=== PATIENT | female | born 1975 | race Caucasian/White ===

== ENCOUNTER → 2016-10-12 | Outpatient (CLI) | payer OTHER ==
[~2016-10-12] MED LIST: AMPH30TA2 PO; FEXO1TAB58 PO; LEVO75TA PO; LIOT5TAB9 PO; METF-384 PO; NORGTAB3 PO
[2016-10-12 10:07] LABS: MAGNESIUM 2.2 mg/dl (1.8-2.4); THYROID STIMULATING HORMONE 0.743 uIu/ml (0.300-4.500)
== END | disposition home or self-care (01) ==
LOC: C.LAB 07:00
PROVIDERS: ATTEND Nurse Practitioner Family
DX: E03.9 Hypothyroidism, unspecified (principal); R03.0 Elevated blood-pressure reading, without diagnosis of hypertension

== ENCOUNTER → 2017-04-17 | Outpatient (CLI) | payer OTHER ==
[2017-04-17 11:25] LABS: HEMOGLOBIN A1C 5.6 % (4.5-5.6)
[2017-04-17 11:53] LABS: BLOOD UREA NITROGEN 13 mg/dl (7-18); CALCIUM 8.8 mg/dl (8.5-10.1); CARBON DIOXIDE 27 mmol/L (21-32); CREATININE 0.88 mg/dl (0.60-1.20); GLUCOSE 106 mg/dl (70-99); POTASSIUM 4.4 mmol/L (3.5-5.1); SODIUM 136 mmol/L (136-145)
[2017-04-17 12:03] LABS: CHOLESTEROL 240 mg/dl (0-200); LDL CHOLESTEROL CALCULATED 156 mg/dl
== END | disposition home or self-care (01) ==
LOC: C.LAB 10:36
PROVIDERS: ATTEND Family Medicine
DX: F98.8 Other specified behavioral and emotional disorders with onset usually occurring in childhood and adolescence (principal); E03.9 Hypothyroidism, unspecified; E78.1 Pure hyperglyceridemia; R73.9 Hyperglycemia, unspecified

== ENCOUNTER 2023-09-21 05:04 | Observation (INO) ==
--- NOTE | 2023-08-19 13:31 | PAT Medication Instructions ---
Medication Instructions Date of Service August 19, 2023 Home Medications Medication Instructions Recorded metronidazole 0.75 % topical cream 1 applic topical BID #45 grams 09/07/22 metformin 1,000 mg tablet 1,000 mg PO BID #180 tabs 07/29/23 Medication List: metronidazole 0.75 % topical cream 1 applic topical BID metformin 1,000 mg tablet 1,000 mg PO BID dextroamphetamine-amphetamine 30 mg tablet (Adderall) 30 mg PO QAM dulaglutide 1.5 mg/0.5 mL subcutaneous pen injector 1.5 mg subcut WK levothyroxine 75 mcg tablet 75 mcg PO QAM liothyronine 5 mcg tablet 15 mcg PO QAM lisinopril 10 mg-hydrochlorothiazide 12.5 mg tablet 1 tab PO QAM norgestimate-ethinyl estradiol 0.18 mg/0.215mg/0.25mg-35 mcg(28)tablet (Tri- Sprintec (28)) 1 tab PO QAM MEDICATION INSTRUCTIONS: Continue as directed metronidazole 0.75 % topical cream 1 applic topical BID (do not apply near surgical area after bathing prior to surgery) ASK your surgeon for instructions norgestimate-ethinyl estradiol 0.18 mg/0.215mg/0.25mg-35 mcg(28)tablet (Tri- Sprintec (28)) 1 tab PO QAM DO NOT take the morning of surgery metformin 1,000 mg tablet 1,000 mg PO BID lisinopril 10 mg-hydrochlorothiazide 12.5 mg tablet 1 tab PO QAM dextroamphetamine-amphetamine 30 mg tablet (Adderall) 30 mg PO QAM Take morning of surgery With a small sip of water, OTHERWISE NOTHING TO EAT OR DRINK AFTER MIDNIGHT: levothyroxine 75 mcg tablet 75 mcg PO QAM liothyronine 5 mcg tablet 15 mcg PO QAM Take evening before surgery metformin 1,000 mg tablet 1,000 mg PO BID Other Notes Per RN phone interview, Last dose to be 09/09/23: dulaglutide 1.5 mg/0.5 mL subcutaneous pen injector 1.5 mg subcut WK If you have any questions please call us at [phone] or [phone] or [phone] or [phone]
--- NOTE | 2023-09-06 09:40 | Anesthesiology Consultation ---
Date of Service September 06, 2023 Assessment & Plan (1) Encounter for pre-operative examination: - Check BSG, test AM DOS - Infectious disease screening: Per assessment on 09/06/23: No known infectious disease contacts or current infectious disease symptoms. No noted recent Covid positive test result. - Outpatient joint assessment: Pt currently scheduled for inpatient pathway. If surgeon requests review for outpatient joint pathway, patient is an acceptable candidate for outpatient joint program from anesthesia standpoint pending surgeon's office assessment that patient is motivated, has good support and completes Same Day Joint Program preop requirements. - Trulicity instructions: Patient takes on . Patient informed at PAT visit to stop 7 days prior to surgery- voiced understanding. DOS 09/21/23. Advised last dose to be 09/09/23. Chart Review Chart Review: Acceptable Risk for Surgery and Patient seen in Pre Admission Testing Teaching & Discussion Pre-Anesthesia Teaching/Discussion Notes: Instructed NPO after midnight before surgery,except medications with 15 cc of water. Medication instructions provided according to the PAT guidelines. History Surgery Operation Date: 09/21/23 10:40 Proposed Procedures p Right Total Hip Arthroplasty - Amador Weiss MD Height/Weight Height: 5 ft 4 in Weight: 93.3 kg Allergies Allergy/AdvReac Type Severity Reaction Status Date / Time adhesive Allergy Unknown Itching Verified 09/02/23 14:17 (with tape) animal dander Allergy Unknown Congestion Verified 09/02/23 14:17 codeine Allergy Unknown Itching Verified 09/02/23 14:17 (Tylenol #3) Medications Home Medications Medication Instructions Recorded Confirmed Last Taken metronidazole 0.75 % topical cream 1 applic topical BID #45 grams 09/07/22 08/13/23 Unknown metformin 1,000 mg tablet 1,000 mg PO BID #180 tabs 07/29/23 08/13/23 Unknown dextroamphetamine-amphetamine 30 30 mg PO QAM 08/13/23 08/13/23 Unknown mg tablet (Adderall) dulaglutide 1.5 mg/0.5 mL 1.5 mg subcut WK 08/13/23 08/13/23 Unknown subcutaneous pen injector levothyroxine 75 mcg tablet 75 mcg PO QAM 08/13/23 08/13/23 Unknown liothyronine 5 mcg tablet 15 mcg PO QAM 08/13/23 08/13/23 Unknown lisinopril 10 1 tab PO QAM 08/13/23 08/13/23 Unknown mg-hydrochlorothiazide 12.5 mg tablet norgestimate-ethinyl estradiol 1 tab PO QAM 08/13/23 08/13/23 Unknown 0.18 mg/0.215mg/0.25mg-35 mcg(28)tablet (Tri-Sprintec (28)) Past Medical History Medical History Acid reflux Occasional Allergic rhinitis Attention deficit disorder without hyperactivity Cervical disc disorder Diabetes mellitus, type 2 Disc degeneration, lumbar Dyslipidemia Hypertension Hypothyroidism Obesity Osteoarthritis of right hip Exercise / Class Metabolic Activity II 4-5 Yardwork/Stairs/Walk up hill (one FS: No CP, no SOB) Past Family History Family History Grandmother (Maternal) Dementia Father Gastroesophageal reflux disease Hypertension Osteoarthritis Hx of CABG Coronary heart disease Heart valve replaced Atrial fibrillation Grandfather (Paternal) Lung cancer Grandmother (Paternal) Myocardial infarction Mother Pancreatic cancer Denies family history of Ovarian cancer Prostate cancer Diabetes Breast cancer Colorectal cancer Past Surgical History Surgical History H/O arthroscopy of shoulder (2014) left History of back surgery (~2004) S/P cervical spinal fusion (2014) C5-C7 Past Anesthesia History No Hx of Anesthesia Complications and No Family Hx of Anesthesia Complications History of PONV No Hx of PONV and No Hx of Motion Sickness Social History Smoking Status: Never smoker Do You Dip or Chew Tobacco: No Hx Alcohol Use: No Hx Substance Use: No substance use type: does not use Review of Systems Patient denies chest pain, shortness of breath, dyspnea on exertion, fever, chills, cough, wheezing, palpitations. Physical Exam Vital Signs BP 111/73 P 95 TEMP 98.0 SP02 100%RA RESP 16 Physical Full cervical extension range of motion. Full TMJ range of motion. TMD 3 finger breaths Mallampati Score 1 Dentition: missing molars, + crowns Lungs: clear throughout to auscultation Cardiac: regular rate and rhythm, no murmurs noted Spine: normal Carotid arteries: negative bruit Extremities: no LE edema Lab Results Anesthesia Preop Results Results Anesthesia Widget: 2 WBC 9.55 K/ul (4.8-10.8) 08/07/23 Hgb 12.4 g/dl (12.0-16.0) 08/07/23 Hct 37.0 % (37.0-47.0) 08/07/23 Plt 401 K/uL (130-400) H 08/07/23 Na 136 mmol/L (136-145) 08/07/23 K 3.8 mmol/L (3.5-5.1) 08/07/23 Cl 104 mmol/L (98-107) 08/07/23 CO2 24 mmol/L (21-32) 08/07/23 BUN 19 mg/dl (6-23) 08/07/23 Creat 0.81 mg/dl (0.6-1.2) 08/07/23 Glucose Level 128 mg/dl (70-99(Fasting)) H 08/07/23 PT 9.6 Seconds (9.0-12.0) 09/06/23 PTT 24 Seconds (21-31) 09/06/23 INR 0.9 (0.9-1.1) 09/06/23 TSH 1.875 uIu/ml (0.300-4.500) 08/07/23 HA1c 6.5 % (4.5-5.6) H 08/07/23 Blood Type A Positive 09/06/23 Antibody Screen NEGATIVE 09/06/23 Testing Electrocardiogram Date: 09/06/23 NSR at 86bpm. "Normal ECG" Chest X-Ray Date: 09/06/23 FINDINGS: ACDF is seen. The cardiomediastinal silhouette is normal. The lungs are clear. No evidence of pleural effusion or pneumothorax. IMPRESSION: No acute chest disease.
--- NOTE | 2023-09-18 08:54 | History & Physical Report ---
Date of Service September 18, 2023 Assessment & Plan (1) Osteoarthritis of right hip: 48-year-old female with advanced right hip arthritis. She is failed conservative treatment. She now like to have her hip fixed. Plan Taken the operating right total hip replacement. The risks Mente this procedure explained the patient clued but not limited to DVT PE infection neurological and vascular bleeding palm pain limb range of motion test is fairly of symptoms incomplete relief of symptoms excetra. The patient understands and desires to proceed. Informed consent is obtained. Will likely place a Prevena VAC postoperatively due to the thick thought soft tissue envelope. She is going to stay in the hospital overnight and hopeful discharge postop day 1. She will use Rock'n Rover. Will use aspirin for DVT prophylaxis. She will need to hold her metformin preoperatively. (2) Arthritis of right hip: (3) Obesity: History of Present Illness Chief Complaint: . Right hip pain. Primary Care Provider: Terri Kebede DO . Patient is a 48-year-old female who presents for surgical treatment of her right hip. She has a several history of increasing right hip pain discomfort describes gotten worse over time. That she been seeing Dr. Fontenot for injections which were lasting about 6 months. This become less successful. She describes mostly groin and thigh pain but some buttock pain. Radiates down to her knee but no further. No numbness. She has been pretty miserable the past couple months. She now like to have her hip fixed. Allergies Allergy/AdvReac Type Severity Reaction Status Date / Time adhesive Allergy Unknown Itching Verified 09/02/23 14:17 (with tape) animal dander Allergy Unknown Congestion Verified 09/02/23 14:17 codeine Allergy Unknown Itching Verified 09/02/23 14:17 (Tylenol #3) Home Medications Medication Instructions Recorded Confirmed Type metronidazole 0.75 % topical cream 1 applic topical BID #45 grams 09/07/22 08/13/23 Rx metformin 1,000 mg tablet 1,000 mg PO BID #180 tabs 07/29/23 08/13/23 Rx dextroamphetamine-amphetamine 30 30 mg PO QAM 08/13/23 08/13/23 History mg tablet (Adderall) dulaglutide 1.5 mg/0.5 mL 1.5 mg subcut WK 08/13/23 08/13/23 History subcutaneous pen injector levothyroxine 75 mcg tablet 75 mcg PO QAM 08/13/23 08/13/23 History liothyronine 5 mcg tablet 15 mcg PO QAM 08/13/23 08/13/23 History lisinopril 10 1 tab PO QAM 08/13/23 08/13/23 History mg-hydrochlorothiazide 12.5 mg tablet norgestimate-ethinyl estradiol 1 tab PO QAM 08/13/23 08/13/23 History 0.18 mg/0.215mg/0.25mg-35 mcg(28)tablet (Tri-Sprintec (28)) Wheeled Walker #1 ea 09/14/23 Rx Past Med/Surg History Problem List (Updated 09/18/23 @ 08:53 by Amador Weiss MD) Obesity Arthritis of right hip Encounter for pre-operative examination Medical History Obesity Osteoarthritis of right hip Acid reflux Occasional Diabetes mellitus, type 2 Hypertension Hypothyroidism Dyslipidemia Disc degeneration, lumbar Cervical disc disorder Attention deficit disorder without hyperactivity Allergic rhinitis Surgical History S/P cervical spinal fusion (2014) C5-C7 H/O arthroscopy of shoulder (2014) left History of back surgery (~2004) Family History Grandmother (Maternal) Dementia Father Gastroesophageal reflux disease Hypertension Osteoarthritis Hx of CABG Coronary heart disease Heart valve replaced Atrial fibrillation Grandfather (Paternal) Lung cancer Grandmother (Paternal) Myocardial infarction Mother Pancreatic cancer Denies family history of Ovarian cancer Prostate cancer Diabetes Breast cancer Colorectal cancer Social History Smoking Status: Never smoker Second Hand Exposure: No; Do You Dip or Chew Tobacco: No; Hx Alcohol Use: No Hx Substance Use: No Preferred Language: Ethiopian Communication Ability: Effective Visual Impairment: No Limitations Hearing Ability: Normal Want Ad Supervisor Required: No Beliefs That Will Affect Care: None marital status: Single Current Living Situation: Alone current occupational status: employed 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 Physical Exam . Physical examination reveals a pleasant middle-aged female. Looks in pretty good health. Examination of the right hip reveal patient ambulates with a slight bit of a limp. Leg lengths appear pretty equal clinically. Pretty good hip motion with some mild pain. Negative straight leg raise. No knee effusion. She is neurologically intact. Constitutional WD/WN, vitals as above Neck trachea midline, no thyromegaly Respiratory normal respiratory effort, lungs clear to auscultation Cardiovascular RRR, no murmur, no edema Gastrointestinal (Abdomen) normal bowel sounds, soft, nontender, no hepatosplenomegaly Results & Data Results & Data Laboratory Results . Diagnostic Findings . X-rays of the right hip were reviewed. Shows advanced right hip arthritis but is got complete loss of her superior joint space. She does have a little bit of subluxation of the femoral head in the acetabulum. The bone density looks good. PG Care Time/CCT Total # of Minutes Spent Total Time Spent with Patient: Total time spent is greater than 50% in coordination of care (as documented) at patient's floor/unit and/or counseling patient: Coding Level of Care Code None Diagnoses Osteoarthritis of right hip M16.11 Arthritis of right hip M16.11 Obesity E66.9
[2023-09-21] MEDS: FAMOTIDINE 20 MG TAB PO SCH (05:56)
[2023-09-21] MEDS: METOCLOPRAMIDE HCL 10 MG TABLET PO SCH (05:56)
[2023-09-21] MEDS: CeleBREX 200 MG CAP PO SCH (05:56)
[2023-09-21] MEDS: ACETAMINOPHEN 500 MG TAB PO SCH ×2 (05:56→14:55)
[2023-09-21] MEDS: Scopolamine 1 MG TDSY TD SCH (05:57)
[2023-09-21] MEDS: LR 60ML/HR IV SCH (05:57)
[2023-09-21] MEDS ORDERED: ROPIVACAINE 0.5% 5 MG/ML 30 ML VIAL ONE (06:17)
[2023-09-21] MEDS ORDERED: LACTATED RINGER'S 500 ML IV PRN (06:37)
[2023-09-21] MEDS ORDERED: NALOXONE HCL 1 MG in SODIUM CHLORIDE 0.9% 1,000 ML IV PRN (06:37)
[2023-09-21] MEDS ORDERED: ePHEDrine sulfate 50 MG/ML AMP IV PRN (06:37)
[2023-09-21] MEDS ORDERED: diphenhydrAMINE 50 MG/ML VIAL IV PRN (06:37)
[2023-09-21] MEDS ORDERED: HYDROmorphone INJ 0.5 MG/0.5 ML SYR IV PRN (06:37)
[2023-09-21] MEDS ORDERED: NALBUPHINE HCL 5 MG in SYRINGE 0 ML IV PRN (06:37)
[2023-09-21] MEDS ORDERED: MIDAZOLAM HCL 1 MG/ML 2ML VIAL ONE (06:37)
[2023-09-21] MEDS ORDERED: NALOXONE HCL 0.4 MG/1 ML VIAL/CARP IV PRN (06:37)
[2023-09-21] MEDS ORDERED: NALOXONE HCL 0.08 MG in SYRINGE 1.8 ML IV PRN (06:37)
[2023-09-21] MEDS ORDERED: ONDANSETRON INJ 2 MG/ML 2 ML VIAL IV PRN (06:37)
[2023-09-21] MEDS ORDERED: MoRPHine SULFATE 2 MG/ML CARP IV PRN (06:37)
[2023-09-21] MEDS ORDERED: MoRPHine SULFATE PF 1 MG/ML 10 ML AMP/VIAL ONE (06:38)
[2023-09-21] MEDS: TRANEXAMIC ACID 1,000 MG **IV Pre-op IV SCH (06:44)
[2023-09-21] MEDS ORDERED: NO NARCOTICS OR SEDATIVES SCH (06:45)
[2023-09-21] MEDS ORDERED: DC INTRASPINAL MORPHINE SCH (06:45)
--- NOTE | 2023-09-21 06:46 | History & Physical Bridge Note ---
Date of Service September 21, 2023 History & Physical Bridge Note I have examined the patient, reviewed the History & Physical and in the interval since the performance of the History & Physical I have noted the following changes of clinical significance: no changes noted
[2023-09-21] MEDS: ceFAZolin 2000MG 2,000 MG/15 ML SYR IV SCH ×2 (07:01→15:20)
[2023-09-21] MEDS ORDERED: ONDANSETRON INJ 2 MG/ML 2 ML VIAL ONE (07:19)
[2023-09-21] MEDS ORDERED: LIDOCAINE 2% 2 ML VIAL/AMP(20MG/ML) INFIL ONE (07:19)
[2023-09-21] MEDS ORDERED: PROPOFOL IV EMULSION 10 MG/ML 20 ML VIAL IV ONE ×2 (07:19→08:40)
[2023-09-21] MEDS: BUPIVACAINE/EPINEPHRINE 0.5% MPF 1:200,000 30 ML VIAL ONE (07:26)
[2023-09-21] MEDS ORDERED: PHENYLEPHRINE 100MCG/ML 10ML SYR IV ONE (07:39)
--- NOTE | 2023-09-21 08:48 | Operative Report ---
PG Post Operative Report Pre & Post Diagnosis Operation Date: 09/21/23 07:00 Pre-Op Diagnosis: Right Hip Degenerative Joint Disease Post-Op Diagnosis: Right Hip Degenerative Joint Disease I identified the patient and participated in the time-out.: Yes Procedure Operation Date: 09/21/23 07:00 Actual Procedures p Right Total Hip Arthroplasty(Right) - Amador Weiss MD Surgeon Amador Weiss MD Salon Sales Consultant 8 WALTER Aguilar Estimated Blood Loss 150 Findings Consistent with Post-Op Diagnosis Operative findings revealed advanced right hip DJD. She had. 6 cartilage loss of the femoral head and acetabulum. Fairly large medial osteophyte. She had a fairly shallow acetabulum with some acetabular dysplasia. Moderate-sized joint effusion. Large soft tissue envelope. Specimens Right femoral head sent for pathology. Anesthesia Type Spinal MAC Complications none Disposition Accompanied Patient To Recovery: No Indications Patient is a 48-year-old female is had a several year history of gradual progressive increasing right hip pain discomfort is consequently worse over the past year. She failed all conservative measures. X-rays show advanced right hip arthritis. She elected proceed with surgical treatment. Description of Procedure Operative implants consist of: 1 Biomet G7 size 52 mm acetabular shell. 2. 6.5 cancellous acetabular screws 1 of 35 mm in length and 1 to 25 mm length. 3. Alvord hole loss mitigation specialist. 4. Highly cross-linked polyethylene liner with a 52 mm outer diam and 36 mm inner diameter. 5. DePuy Corail a size 10 KLA 125 degree angle short neck femoral stem. 6. +1.5/36 mm ceramic articular ball. The patient was taken the operating, identified, placed on the operating table in the supine position. All contact areas were appropriately padded. IV antibiotics tried by anesthesia team. A spinal anesthetic and been implemented holding area. Palencia catheter was placed in sterile fashion. The patient was then placed in the left lateral decubitus position. An axillary roll was placed. Distal Birkett position was used for positioning. The right hip and leg were then prepped and draped in usual sterile fashion. A posterolateral approach to the right hip was then performed through a curvilinear incision centered over the greater trochanter. Sharp dissection was carried through subcutaneous tissue down of the IT band gluteal fascia with the IT band gluteal fascia incised longitudinally in line with skin incision. The underlying greater bursa was excised. The piriformis and external rotators along with the posterior hip joint capsule were then released from the posterior aspect the hip as a single layer. Great care was taken throughout the procedure to protect sciatic nerve at all times. Hip was internally rotated and dislocated. Femoral neck osteotomy cut was made with Final Cut about 12 mm above the lesser trochanter. Femoral head was removed and sent for pathology. The femur was retracted anteriorly. Attention drawn the acetabulum. The acetabular labrum was excised. Pulmonary fat was excised. She had a fairly shallow acetabulum. Sequential reaming the acetabular was then performed again with size 43 and progressing up to 51. I reamed a little bit with a 52 reamer. We took great care to medialize the acetabulum some in order to deep in it. A 52 mm G7 acetabular shell was then placed in about 40 degrees lateral opening and 20 degrees of anteversion. Was fixed with two 6.5 cancellous acetabular screws. Trial liner was placed. Attention drawn the femur. The proximal femur was entered with a cookie cutter followed by canal finder. I then broached beginning the size 8 and progressed up to a 10. Get excellent fitted to 10. I could not quite get this the whole way down to the calcar cut. We trialed the hip and the +1.5 articular ball seem to recreate the leg length equal, soft tissue oh appropriate tension and it was fully stable in full extension and external rotation flexion to 90 degrees internal Tatian over 50 degrees. Soft tissue tension seemed appropriate. We elected to place these implants. All trial implants were removed. Alvord hole loss mitigation specialist was placed. Highly cross- linked polyethylene liner was placed. A size 10 KLA 125 degree angle short neck femoral stem was then impacted in position. A +1.5/36 mm ceramic articular ball was placed. Hip was located and once again found to be stable. Attention drawn toward closing. Wounds irrigated coconuts pulsatile lavage solution. I did inject locally with 60 cc of half percent Marcaine with epinephrine. The posterior capsule and external rotators were then repaired through drill holes in the posterior trochanter with #2 Tycron suture. The IT band gluteal fascia then closed in 1 PDS suture running fashion through the subcutaneous tissue then closed with 2 layers of the deep layer #2 Vicryl suture in buried interrupted fashion and then 2-0 Dexon suture in a buried interrupted fashion. Skin was then closed with skin chandni. Leg was then cleaned and dried. A Prevena VAC dressing was applied due to her thick soft tissue envelope. The patient was then transferred to the recovery room in stable condition. Patient tolerated procedure well and there were no complications. Blaise Aguilar, my physician assistant clinical director, was present for the entire procedure. His assistance was essential and required for appropriate patient positioning, prepping and draping, surgical exposure, performing the technical details of the operation, placement the implants, closure of the wound, and placement of the sterile bandage. I attest to the content of the Intraoperative Record and any orders documented therein. Any exceptions are noted below.
--- NOTE | 2023-09-21 09:42 | XRay Report ---
SINGLE VIEW PELVIS; SINGLE VIEW RIGHT HIP CLINICAL HISTORY: Postoperative examination. FINDINGS: An AP portable view of the hips and pelvis with a crosstable lateral portable view of the r ight hip are compared to study dated 08/09/2023. A bipolar right hip arthroplasty is in near-anatomic a lignment. At least 2 cortical screws transfix the acetabular cup. No acute fracture is identified. Th ere are expected postoperative changes overlying the right hip including skin clips, subcutaneous gas , and soft tissue swelling. A phlebolith is seen in the left hemipelvis. IMPRESSION: Expected postoperative findings status post right hip arthroplasty. No acute fracture is seen. ACT 112: Negative or not required by law. Electronically signed by: Tej Macias M.D. 09/21/2023 9:41 AM
[2023-09-21] MEDS ORDERED: GLUCAGON FOR INJ 1 MG VIAL SQ PRN (09:55)
[2023-09-21] MEDS ORDERED: MAGNESIUM HYDROXIDE SUSP 30 ML UDC PO PRN (09:55)
[2023-09-21] MEDS ORDERED: PHARMACY GLYCEMIC MGMT CONSULT PRN (09:55)
[2023-09-21] MEDS ORDERED: ALUMINUM/MAGNESIUM SUSP 30 ML UDC PO PRN (09:55)
[2023-09-21] MEDS ORDERED: GLUCOSE 10 TAB/TUBE PO PRN (09:55)
[2023-09-21] MEDS ORDERED: DEXTROSE 50% 50 ML SYRINGE IV PRN (09:55)
[2023-09-21] MEDS ORDERED: GLUCOSE 40% GEL 15 GM TUBE PO PRN (09:55)
[2023-09-21] MEDS ORDERED: bisacodyL 10 MG SUPP PR PRN (09:55)
[2023-09-21] MEDS ORDERED: CARBOHYDRATES FOR HYPOGLYCEMIA PO PRN (09:55)
[2023-09-21] MEDS: LR 500ML BOLUS, THEN 15ML/HR IV SCH (09:56)
[2023-09-21] MEDS: MoRPHine SULFATE PF 1 MG/ML 10 ML AMP/VIAL INT SPINAL ONE (09:57)
[2023-09-21] MEDS: SODIUM CHLORIDE 0.9% 1,000 ML IV SCH ×2 (09:57→11:01)
[2023-09-21] MEDS: MULTIVITAMIN TAB PO SCH (11:25)
[2023-09-21] MEDS: LISINOPRIL/HCTZ 10/12.5MG TAB PO SCH (11:26)
[2023-09-21] MEDS: SENNA 8.6 MG TAB PO SCH (11:26)
[2023-09-21] MEDS: ASPIRIN 81 MG ECTAB PO SCH (11:26)
--- NOTE | 2023-09-21 11:31 | Pharmacy Report ---
Pharmacy Glycemic Short Note 2 - Date of Service September 21, 2023 - Glycemic Short BSG Results (Last 24 hours): 09/21/23 09/21/23 05:41 08:39 POC Glucose 144 H 180 H OUTPATIENT ANTIDIABETIC REGIMEN: * Metformin 1000 mg PO BID * Dulaglutide 1.5 mg SC weekly on * A1c = 6.5% ASSESSMENT: * Linda is a 48 yo T2DM s/p right total hip arthroplasty * Good outpatient glycemic control evidenced by A1c of 6.5%. Patient did not receive any pedro-op steroids today. Will start weight based Novolog. Hold basal insulin for now. Will need to reassess basal insulin on POD #1 AM per patient is ordered a one time dose of dexamethasone 10 mg IV for 09/21. PLAN FOR INPATIENT GLYCEMIC CONTROL: * Hold outpatient oral diabetes medications * Basal insulin * hold for now * Bolus insulin * NovoLog per scale ACHS or Q6hrs while NPO * Goal Range: Low 110 mg/dL - High 140 mg/dL * Correction Factor: 25 mg/dL/unit * Nutritional / Prandial insulin per carb ratio of 1 unit per 8 grams CHO consumed On 09/21 AM, start: * Goal Range: Low 110 mg/dL - High 140 mg/dL * Correction Factor: 15 mg/dL/unit * Nutritional / Prandial insulin per carb ratio of 1 unit per 6 grams CHO consumed
--- NOTE | 2023-09-21 11:32 | Anesthesiology Progress Note ---
Date of Service September 21, 2023 Anesthesia Post Procedure Vital Signs Vital Signs: Temp Pulse Pulse Resp BP Pulse Ox O2 Del Method 09/21/23 10:58 36.4 C L 74 18 99/68 L 100 Room Air 09/21/23 10:30 36.5 C 71 18 112/73 100 Room Air 09/21/23 10:29 18 98 09/21/23 10:00 36.7 C 82 16 102/67 100 Room Air 09/21/23 09:50 71 18 105/64 97 Room Air 09/21/23 09:40 62 16 98/59 L 97 Room Air 09/21/23 09:30 67 18 102/61 100 Room Air 09/21/23 09:15 73 16 104/59 L 100 Room Air 09/21/23 09:05 36.4 C L 77 18 119/57 L 98 Room Air 09/21/23 08:55 85 14 118/59 L 100 Room Air 09/21/23 08:45 77 18 107/64 100 Oxymask 09/21/23 08:35 36.4 C L 75 16 112/60 96 Oxymask 09/21/23 05:39 Room Air 09/21/23 05:39 36.8 C 86 18 111/74 100 Room Air O2 Flow Rate 09/21/23 10:58 09/21/23 10:30 09/21/23 10:29 09/21/23 10:00 09/21/23 09:50 09/21/23 09:40 09/21/23 09:30 09/21/23 09:15 09/21/23 09:05 09/21/23 08:55 09/21/23 08:45 4 09/21/23 08:35 6 09/21/23 05:39 09/21/23 05:39 Pain Intensity Right Hip: Pain Intensity: 1 Transfer of Care Handoff Completed per policy Notes Mental Status: alert / awake / arousable and participated in evaluation Patient Amnestic to Procedure: Yes Nausea / Vomiting: adequately controlled Pain: adequately controlled Airway Patency, RR, SpO2: stable & adequate BP & HR: stable & adequate Hydration State: stable & adequate Neuraxial Anesthesia: was administered and sensory block is resolving Anesthetic Complications: no major complications apparent and Pt Satisfied with anesthetic care
[2023-09-21] MEDS: DOCUSATE SODIUM 100 MG CAP PO SCH (11:51)
[2023-09-21] MEDS: KETOROLAC 30 MG/ML VIAL IV SCH (11:52)
[2023-09-21] MEDS: INSULIN ASPART PER UNIT CHARGE SC SCH (12:13)
[2023-09-21] MEDS: METRONIDAZOLE 0.75% TOP SCH (12:42)
[2023-09-21] MEDS: TRANEXAMIC ACID / 0.7% NACL 1,000 MG/100 ML BAG IV SCH (15:18)
[2023-09-21] MEDS: Scopolamine CHECK PATCH PLACEMENT SCH (16:05)
[2023-09-21] MEDS: ASCORBIC ACID 500 MG TAB PO SCH (17:08)
[2023-09-21] MEDS ORDERED: SENNA 8.6 MG TAB PO SCH (21:00)
[2023-09-22] MEDS ORDERED: METOCLOPRAMIDE HCL INJ 5 MG/ML 2 ML VIAL IV PRN (00:38)
[2023-09-22] MEDS ORDERED: HYDROmorphone INJ 0.5 MG/0.5 ML SYR IV PRN (00:38)
[2023-09-22] MEDS ORDERED: ONDANSETRON INJ 2 MG/ML 2 ML VIAL IV PRN (00:38)
[2023-09-22] MEDS ORDERED: NALOXONE HCL 0.4 MG/1 ML VIAL/CARP IV PRN (00:38)
[2023-09-22] MEDS ORDERED: diphenhydrAMINE Capsule 25 MG CAP PO PRN (00:38)
[2023-09-22 06:01] LABS: Basophils # (auto) 0.06 K/uL (0.00-0.20); Basophils % (auto) 0.6 %; Eosinophils # (auto) 0.21 K/uL (0.00-0.50); Eosinophils % (auto) 2.1 %; Hemoglobin 9.6 g/dl (12.0-16.0); Immature Granulocytes # (auto) 0.04 K/uL (0.01-0.20); Immature Granulocytes % (auto) 0.4 %; Lymphocytes # (auto) 2.46 K/uL (1.20-3.40); Lymphocytes % (auto) 24.7 %; Mean Corpuscular Hemoglobin 28.7 pg (25.0-34.0); Mean Corpuscular Hgb Conc 33.1 g/dL (32.0-36.0); Mean Corpuscular Volume 86.8 fL (80.0-100.0); Mean Platelet Volume 9.9 fL (9.4-12.4); Monocytes # (auto) 0.71 K/uL (0.11-0.59); Monocytes % (auto) 7.1 %; Neutrophils # (auto) 6.46 K/uL (1.40-6.50); Neutrophils % (auto) 65.1 %; Platelet Count 252 K/uL (130-400); RDW Coefficient of Variation 13.2 % (11.5-14.5); RDW Standard Deviation 41.4 fL (36.4-46.3); Red Blood Count 3.34 M/uL (4.20-5.40); White Blood Count 9.94 K/ul (4.8-10.8)
[2023-09-22] MEDS: LEVOTHYROXINE SODIUM 75 MCG TABLET PO SCH (06:07)
[2023-09-22 06:14] LABS: BUN Creatinine Ratio 21.5 (10-20); Calcium 8.3 mg/dl (8.6-10.3); Creatinine Clr Calc Pharmacy 80.9 ml/min; Est GFR (African American) 83.6 ml/min; Est GFR (Non-African American) 72.2 ml/min; Potassium 4.7 mmol/L (3.5-5.1)
[2023-09-22] MEDS: INSULIN ASPART PER UNIT CHARGE SC SCH (08:14)
[2023-09-22] MEDS: dexAMETHasone 10 MG in SYRINGE 0 ML IV SCH (08:18)
[2023-09-22] MEDS: LIOTHYRONINE SODIUM 5 MCG TAB PO SCH (08:39)
[2023-09-22] MEDS: DEXTROAMPHETAMINE/AMPHETAMINE IR 10 MG TAB PO SCH (08:40)
[2023-09-22] MEDS: traMADol HCL 50 MG TABLET PO PRN (10:00)
--- NOTE | 2023-09-22 14:33 | Surgery Progress Note ---
Date of Service September 22, 2023 Assessment & Plan (1) Status post right hip replacement: Plan: 48-year-old female postop day 1 from right hip replacement doing pretty well. Pains controlled. Hips located. She is neurologically intact. That she is getting around quite well. Plan: 1. DVT prophylaxis including thigh-high teds, SCDs, aspirin twice a day. 2. PT/OT. Weight-bear as tolerated. Right total hip protocol. 3. Pain control doing well with current pain regimen. 4. Wound care. She got a Prevena VAC dressing in place. That will stay on for 7 days. 5. Disposition plan to discharge to home with some home health today. Admission and Anticipated Discharge Date Admission Date: September 21, 2023 Subjective 48-year-old female postop day 1 from a right total hip replacement. She is doing pretty well. Pain is controlled. Therapy went reasonably well. No chest pain or shortness of breath. She is hoping to go home. Physical Exam Physical Exam: Physical examination was a pleasant middle-aged female. She is walked around her room with a walker when I visited today. That she is doing that quite well and comfortably. Examination the right hip reveals a Prevena VAC dressing to be in place. Thigh is soft and supple. Leg lengths appear equal. She is neurologically intact. Neck: trachea midline, no thyromegaly Respiratory: normal respiratory effort, lungs clear to auscultation Cardiovascular: RRR, no murmur, no edema Gastrointestinal (Abdomen): normal bowel sounds, soft, nontender, no hepatosplenomegaly Results & Data Vital Signs (Past 12 Hours) Vital Signs Temp Pulse Resp BP Pulse Ox O2 Del Method 09/22/23 08:29 108/69 09/22/23 07:02 36.7 C 83 16 97/65 L 100 Room Air 09/22/23 07:00 16 96 09/22/23 05:40 71 15 105/69 99 Room Air 09/22/23 05:40 15 99 09/22/23 04:00 16 96 09/22/23 03:30 36.6 C 73 16 98/63 L 99 Room Air 09/22/23 03:00 16 99 Laboratory Results Hemoglobin is 9.6. Hematocrit is 29.0. Electrolytes are stable. PG Care Time/CCT Total # of Minutes Spent Total Time Spent with Patient: Total time spent is greater than 50% in coordination of care (as documented) at patient's floor/unit and/or counseling patient: Coding Level of Care Code 28143 Post Operative Follow-Up Diagnoses Status post right hip replacement Z96.641
--- NOTE | 2023-09-28 06:41 | Discharge Summary ---
Date of Service September 28, 2023 Discharge Data Procedures Performed Operation Date: 09/21/23 07:00 Actual Procedures p Right Total Hip Arthroplasty(Right) - Amador Weiss MD Hospital Course (1) Status post right hip replacement: This is a 48 year old patient admitted on 09/21/23 and underwent total hip arthroplasty. She tolerated the procedure well and there were no complications. Transferred to the PACU post op and later to the orthopedic floor for further care. She was given ancef for antibiotic prophylaxis. She was also given SARIAH stockings, SCDs, and aspirin for DVT prophylaxis. Hemoglobin, hematocrit, and vital signs were monitored during her hospital stay and remained stable. Did not require any blood transfusions. There were no complications during her hospital stay. By post op day #1 the patient was tolerating a diabetic diet, pain was reasonably controlled with oral pain medicine, and she was participating in physical therapy. On post op day #1 the patient was discharged home and set up with home health care. She was given printed discharge instructions including prescriptions for extra strength tylenol, aspirin, ketorolac, zofran, senokot, and tramadol. Continue hip precautions. Continue physical therapy, weight bearing as tolerated. Continue SARIAH stockings. Follow up approximately 2 weeks post op or sooner if there are problems or concerns. Coding Level of Care Code None Diagnoses Status post right hip replacement Z96.641
== END 2023-09-22 12:06 | disposition home health service (06) ==
LOC: 3E 05:04 → ASU 05:04
DX: K21.9 Gastro-esophageal reflux disease without esophagitis; E11.9 Type 2 diabetes mellitus without complications; Z79.84 Long term (current) use of oral hypoglycemic drugs; Z91.048 Other nonmedicinal substance allergy status; M16.11 Unilateral primary osteoarthritis, right hip; I10 Essential (primary) hypertension; E03.9 Hypothyroidism, unspecified; Z79.82 Long term (current) use of aspirin; Z79.899 Other long term (current) drug therapy; Z68.32 Body mass index [BMI] 32.0-32.9, adult; E66.9 Obesity, unspecified; Z79.890 Hormone replacement therapy; Z88.5 Allergy status to narcotic agent; Z79.3 Long term (current) use of hormonal contraceptives; E78.5 Hyperlipidemia, unspecified